=== PATIENT | female | born 1975 | race Two or more races ===

== ENCOUNTER 2025-05-20 06:45 | Day surgery (SDC) | payer BC, SELFPAY ==
[2025-05-20] VITALS (9 sets, daily range): BP systolic 120–145; BP diastolic 69–94; PULSE 62–82; RESP 14–23; TEMP 36.1–37; O2SAT 98–100; BMI 33.6
[2025-05-20] MEDS: SODIUM CHLORIDE 0.9% 500 ML 500 ML 20 ML IV (07:26)
[2025-05-20] MEDS: MIDAZOLAM INJ 1 MG/ML VIAL 2 ML (ASD USE ONLY) 2 MG IVP (07:29)
[2025-05-20] MEDS: fentaNYL CIT INJ 50 mCg/ML AMP 2ML (ASD USE ONLY) IVP (07:29)
== END 2025-05-20 08:16 | disposition home or self-care (01) ==
PROVIDERS: PCP Obstetrics & Gynecology; Referring Provider Surgery; Visit Provider Surgery
PROC: 0DBE8ZX Excision of Large Intestine, Via Natural or Artificial Opening Endoscopic, Diagnostic (ICD-10-PCS; CPT 45380; principal; 2025-05-20 08:00)
DX: Z12.11 Encounter for screening for malignant neoplasm of colon (principal); K64.1 Second degree hemorrhoids; K57.31 Diverticulosis of large intestine without perforation or abscess with bleeding
CPT/HCPCS: 45380; A4649; J1200; J2250; J3010; J7999